=== PATIENT | female | born 1945 | race Caucasian/White ===

== ENCOUNTER → 2018-10-05 | Outpatient (REF) | payer MEDICARE, MEDICAID ==
[2018-10-05 13:27] LABS: APPEARANCE, URINE CLEAR (CLEAR); BACTERIA, URINE AUTO NEGATIVE (NEGATIVE); BILIRUBIN, URINE AUTO NEGATIVE (NEGATIVE); BLOOD, URINE BLOOD NEGATIVE (NEGATIVE); COLOR, URINE STRAW (YELLOW); GLUCOSE, URINE (UA) AUTO NEGATIVE (NEGATIVE); KETONE, URINE AUTO NEGATIVE (NEGATIVE); LEUKOCYTE ESTERASE, URINE AUTO NEGATIVE (NEGATIVE); NITRITE, URINE AUTO NEGATIVE (NEGATIVE); PROTEIN, URINE AUTO NEGATIVE (NEGATIVE); RBC, URINE AUTO 0 /HPF (0-3); SPECIFIC GRAVITY URINE AUTO 1.003 (1.002-1.035); SQUAMOUS EPITHELIAL CELL UR AU 0 /HPF (0-6); UROBILINOGEN, URINE AUTO 0.2 mg/dL (0.0-2.0); WBC, URINE AUTO 0 /HPF (0-3)
== END ==
LOC: M SMT 13:03
PROVIDERS: ATTEND Nurse Practitioner Women's Health
DX: N39.0 Urinary tract infection, site not specified (principal)
CPT/HCPCS: 51798; 81001; 87086; G0463

== ENCOUNTER → 2021-08-11 | Outpatient (CLI) | payer MEDICARE, MEDICAID ==
[~2021-08-11] MED LIST: ALEN70TA82 PO; AMLO1TAB25 PO; ATOR40TA75 PO; CALC1TAB63 PO; ECOT81TA5 PO; ISOS1TAB36 PO; LOPE1CAP5 PO; METO1TAB7 PO; PREG100C PO; ZOLO100T PO
== END ==
LOC: M LABSMTC 09:11
PROVIDERS: ATTEND Anesthesiology
DX: Z20.828 Contact with and (suspected) exposure to other viral communicable diseases (principal); Z11.52 Encounter for screening for COVID-19

== ENCOUNTER 2021-08-15 07:59 | Day surgery (SDC) | payer MEDICARE, MEDICAID ==
[~2021-08-15] VITALS: Ht 152.4 cm; Wt 79.7 kg
[~2021-08-15 07:59] MED LIST changes: +LIDOCAINE 2% 100MG/5ML SDV (FOR ANES.) As Ordered ONE; +NS 1,000 ML IV ONE; +propofoL 200 MG/20 ML VIAL As Ordered ONE
[2021-08-15 10:00] VITALS: BP 122/76
== END 2021-08-15 10:20 | disposition home or self-care (01) ==
LOC: M OPP 07:59
PROVIDERS: ATTEND Internal Medicine Gastroenterology
DX: K52.89 Other specified noninfective gastroenteritis and colitis (principal); K57.30 Diverticulosis of large intestine without perforation or abscess without bleeding; K64.0 First degree hemorrhoids; R19.7 Diarrhea, unspecified; Z79.82 Long term (current) use of aspirin; Z79.899 Other long term (current) drug therapy; Z88.1 Allergy status to other antibiotic agents; Z88.5 Allergy status to narcotic agent; Z88.8 Allergy status to other drugs, medicaments and biological substances; Z91.013 Allergy to seafood

== ENCOUNTER 2023-04-22 06:35 | Day surgery (SDC) | payer MEDICARE, MEDICAID ==
[~2023-04-22] VITALS: Ht 157.5 cm; Wt 81.6 kg
[~2023-04-22 06:35] MED LIST changes: +ALBU8.5H PO; +ALEN70SO2 PO; +ELIQ5TAB PO; +GLYCCAP PO; +IRON65TA2 PO; +LASI40TA9 PO; +LIDO1PAD13 TOP; -LIDOCAINE 2% 100MG/5ML SDV (FOR ANES.) As Ordered ONE; +LYRI150C PO; +NITR-67 PO; -NS 1,000 ML IV ONE; +NYST100085 TOP; +PHENYLEPHRINE 10% OPHTH SOL 5ML OS PRN; -PREG100C PO; +PREG100C2 PO; +ZINC28PA TP; +[UNRECOGNIZED DRUG - CODE] PO; -propofoL 200 MG/20 ML VIAL As Ordered ONE
[2023-04-22] MEDS ORDERED: LIDOCAINE 1% SDV 5ML VIAL As Ordered ONE (06:47)
[2023-04-22] MEDS ORDERED: CEFUROXIME 1MG/0.1ML INTRACAMERAL INJ As Ordered ONE (06:48)
[2023-04-22] MEDS ORDERED: LIDOCAINE 3.5 % 1ML OPHTH TOPICAL GEL OU ONE (07:00)
[2023-04-22] MEDS ORDERED: TROPICAMIDE 1% OPHTH SOLN 15ML OS SCH (07:00)
[2023-04-22] MEDS ORDERED: CYCLOPENTOLATE 1% OPHTH SOLN 2ML BTL OS SCH (07:00)
[2023-04-22] MEDS ORDERED: PHENYLEPHRINE 2.5% OPHTH SOL 2ML OS SCH (07:00)
[2023-04-22] MEDS ORDERED: BSS IRRIG/VANCO(10MG)/TOBRA(5MG)/EPINEPH(1:1000-0.5CC)500ML BAG-ORONLY IR ONE (07:00)
[2023-04-22] MEDS ORDERED: LIDOCAINE 1% SDV 5ML VIAL SC PRN (07:05)
[2023-04-22] MEDS ORDERED: MIDAZOLAM INJ 2MG/2ML VIAL As Ordered ONE (07:08)
[2023-04-22] MEDS ORDERED: fentaNYL 100 MCG/2 ML INJECTION As Ordered ONE (07:09)
[2023-04-22] MEDS ORDERED: OFLOXACIN 0.3 % (OCUFLOX) OPTH SOL 5ML OS SCH (07:35)
[2023-04-22 09:30] VITALS: BP 101/70; TEMP 96.9; O2SAT 94
== END 2023-04-22 09:48 | disposition home or self-care (01) ==
LOC: M SDC 06:35
PROVIDERS: ATTEND Ophthalmology
DX: H25.12 Age-related nuclear cataract, left eye (principal); I48.91 Unspecified atrial fibrillation; I25.10 Atherosclerotic heart disease of native coronary artery without angina pectoris; I10 Essential (primary) hypertension; E78.5 Hyperlipidemia, unspecified; K57.92 Diverticulitis of intestine, part unspecified, without perforation or abscess without bleeding; M81.0 Age-related osteoporosis without current pathological fracture; G47.33 Obstructive sleep apnea (adult) (pediatric); F43.10 Post-traumatic stress disorder, unspecified; F41.9 Anxiety disorder, unspecified; F32.A Depression, unspecified; J45.909 Unspecified asthma, uncomplicated; Z88.8 Allergy status to other drugs, medicaments and biological substances; Z88.5 Allergy status to narcotic agent; Z91.013 Allergy to seafood; Z79.899 Other long term (current) drug therapy; Z79.01 Long term (current) use of anticoagulants
CPT/HCPCS: 66984; J0697; J2250; J3010; V2632

== ENCOUNTER → 2023-06-02 | Outpatient (REF) | payer MEDICARE, MEDICAID ==
[~2023-06-02] MED LIST changes: -PHENYLEPHRINE 10% OPHTH SOL 5ML OS PRN
== END ==
LOC: M LAB REF 10:50
PROVIDERS: ATTEND Internal Medicine Gastroenterology
DX: R19.7 Diarrhea, unspecified (principal)

== ENCOUNTER 2023-06-09 06:33 | Day surgery (SDC) | payer MEDICARE, MEDICAID ==
[~2023-06-09] VITALS: Ht 152.4 cm; Wt 79.8 kg
[~2023-06-09 06:33] MED LIST changes: +BSS IRRIG/VANCO(10MG)/TOBRA(5MG)/EPINEPH(1:1000-0.5CC)500ML BAG-ORONLY IR ONE; +CYCLOPENTOLATE 1% OPHTH SOLN 2ML BTL OD SCH; +LIDOCAINE 3.5 % 1ML OPHTH TOPICAL GEL OU ONE; +PHENYLEPHRINE 10% OPHTH SOL 5ML OD PRN; +PHENYLEPHRINE 2.5% OPHTH SOL 2ML OD SCH; +PROBCAP14 PO; +TROPICAMIDE 1% OPHTH SOLN 15ML OD SCH; +[UNRECOGNIZED DRUG - OTHER] PO
[2023-06-09] MEDS ORDERED: LIDOCAINE 1% SDV 5ML VIAL As Ordered ONE (06:42)
[2023-06-09] MEDS ORDERED: CEFUROXIME 1MG/0.1ML INTRACAMERAL INJ As Ordered ONE (06:43)
[2023-06-09] MEDS ORDERED: fentaNYL 100 MCG/2 ML INJECTION As Ordered ONE (07:17)
[2023-06-09] MEDS ORDERED: MIDAZOLAM INJ 2MG/2ML VIAL As Ordered ONE (07:17)
[2023-06-09] MEDS ORDERED: OFLOXACIN 0.3 % (OCUFLOX) OPTH SOL 5ML OD ONE (07:40)
[2023-06-09 09:55] VITALS: BP 112/76; TEMP 98.2; O2SAT 95
== END 2023-06-09 10:00 | disposition home or self-care (01) ==
LOC: M SDC 06:33
PROVIDERS: ATTEND Ophthalmology
DX: H26.9 Unspecified cataract (principal); I48.91 Unspecified atrial fibrillation; I25.10 Atherosclerotic heart disease of native coronary artery without angina pectoris; I50.9 Heart failure, unspecified; E78.00 Pure hypercholesterolemia, unspecified; Z79.899 Other long term (current) drug therapy; J45.909 Unspecified asthma, uncomplicated; G47.30 Sleep apnea, unspecified; Z88.5 Allergy status to narcotic agent
CPT/HCPCS: 66984; J0697; J2250; J3010; V2632

== ENCOUNTER → 2024-10-05 | Outpatient (REF) | payer MEDICARE, MEDICAID ==
[~2024-10-05] MED LIST changes: -BSS IRRIG/VANCO(10MG)/TOBRA(5MG)/EPINEPH(1:1000-0.5CC)500ML BAG-ORONLY IR ONE; -CYCLOPENTOLATE 1% OPHTH SOLN 2ML BTL OD SCH; -LIDOCAINE 3.5 % 1ML OPHTH TOPICAL GEL OU ONE; -PHENYLEPHRINE 10% OPHTH SOL 5ML OD PRN; -PHENYLEPHRINE 2.5% OPHTH SOL 2ML OD SCH; -TROPICAMIDE 1% OPHTH SOLN 15ML OD SCH
== END ==
LOC: M LAB REF 11:15
PROVIDERS: ATTEND Internal Medicine Gastroenterology
DX: R19.7 Diarrhea, unspecified (principal)

== ENCOUNTER → 2025-02-26 | Outpatient (REF) | payer MEDICARE, MEDICAID | LOC: M LAB REF 11:10 | PROVIDERS: ATTEND Internal Medicine Gastroenterology | DX: R19.7 Diarrhea, unspecified (principal) ==